=== PATIENT | male | born 1945 | race Caucasian/White ===

== ENCOUNTER 2018-01-19 18:40 | Inpatient (IN) | payer MEDICARE, BC ==
[2018-01-19 19:17] LABS: ADD MAN DIFF? NO
[2018-01-19] MEDS: ASPIRIN 325 MG TAB PO (19:25)
[2018-01-19] MEDS: morphine 4 MG/ML VIAL IV ×2 (19:25→20:35)
[2018-01-19] MEDS: ONDANSETRON 4 MG INJ IV ×2 (19:25→20:35)
[2018-01-19] MEDS: NITROGLYCERIN 2% 1 GM OINT PKT TD ×2 (19:26→20:36)
[2018-01-19] MEDS: SOD CHLORIDE 0.9% 500 ML IV (19:26)
[2018-01-19 19:29] LABS: WHITE BLOOD COUNT 12.8 10^3/ul (4.8-10.8)
[2018-01-19 19:29] LABS: BASOPHILS % 0.2 % (0.0-2.0); EOSINOPHILS # 0.2 10^3/ul (0.0-0.5); EOSINOPHILS % 1.3 % (0.0-7.0); HEMOGLOBIN 14.6 g/dl (14.0-18.0); LYMPHOCYTES # 2.6 10^3/ul (0.8-2.9); LYMPHOCYTES % 20.7 % (15.0-51.0); MEAN CORPUSCULAR HEMOGLOBIN 31.5 pg (29.0-33.0); MEAN CORPUSCULAR HGB CONC 32.4 g/dl (32.0-37.0); MEAN CORPUSCULAR VOLUME 97.2 fl (82.0-101.0); MONOCYTE # 1.1 10^3/ul (0.3-0.9); MONOCYTES % 8.4 % (0.0-11.0); NEUTROPHIL # 8.8 10^3/ul (1.6-7.5); PLATELET COUNT 201 10^3/UL (140-415); RED BLOOD COUNT 4.63 10^6/ul (4.70-6.10); RED CELL DISTRIBUTION WIDTH 14.6 % (11.5-14.5)
[2018-01-19] MEDS: ALBUTEROL 0.083% (NEB) 2.5 MG/3 ML AMP INH (19:33)
[2018-01-19 19:37] LABS: ALANINE AMINOTRANSFERASE 35 IU/L (13-69); ALBUMIN 3.4 g/dl (3.3-4.9); ALBUMIN/GLOBULIN RATIO 0.94; ALKALINE PHOSPHATASE 49 IU/L (42-121); ANION GAP 14 (8-16); ASPARTATE AMINO TRANSFERASE 46 IU/L (15-46); BILIRUBIN,INDIRECT 0.7 mg/dl (0-1.1); BILIRUBIN,TOTAL 0.7 mg/dl (0.2-1.3); BLOOD UREA NITROGEN 12 mg/dl (7-20); CALCIUM 8.8 mg/dl (8.4-10.2); CARBON DIOXIDE 29 mmol/L (21-31); CHLORIDE 104 mmol/L (97-110); CREATININE 0.95 mg/dl (0.61-1.24); GLUCOSE 127 mg/dl (70-220); SODIUM 143 mmol/L (135-144)
[2018-01-19 19:39] LABS: INR 1.02; PROTIME 13.5 Sec (11.9-14.9); PT RATIO 1.1
[2018-01-19 19:40] LABS: PARTIAL THROMBOPLASTIN TIME 30.1 Sec (25.0-35.0)
[2018-01-19 19:48] LABS: B-TYPE NATRIURETIC PEPTIDE 5930 PG/ML (0-125)
[2018-01-19] MEDS: IODIXANOL LOCM 100 ML BTL (20:37)
[2018-01-19] MEDS: SOD CHLORIDE 0.9% 100 ML (20:37)
[2018-01-19] MEDS: ENOXAPARIN 100 MG/ML SYG SC (20:47)
[2018-01-19] MEDS ORDERED: SOD CHLORIDE 0.9% 1,000 ML IV (21:09)
[2018-01-19] MEDS ORDERED: ACETAMINOPHEN 325 MG TAB PO (21:30)
[2018-01-19] MEDS ORDERED: ONDANSETRON 4 MG INJ IV ×2 (21:30→23:00)
[2018-01-19] MEDS: ATORVASTATIN 80 MG TAB PO (23:06)
[2018-01-20 01:01] LABS: CREATINE KINASE 169 IU/L (23-200)
[2018-01-20 01:12] LABS: CK INDEX 9.6
[2018-01-20] MEDS: DEXTROSE 5%-0.45% NACL 1,000 ML IV ×2 (05:28→21:16)
[2018-01-20] MEDS: CLOPIDOGREL 75 MG TAB PO ×2 (06:26→09:38)
[2018-01-20 06:31] LABS: ADD MAN DIFF? NO
[2018-01-20 06:35] LABS: WHITE BLOOD COUNT 11.4 10^3/ul (4.8-10.8)
[2018-01-20 06:35] LABS: BASOPHIL # 0.1 10^3/ul (0.0-0.1); BASOPHILS % 0.4 % (0.0-2.0); EOSINOPHILS # 0.2 10^3/ul (0.0-0.5); EOSINOPHILS % 1.5 % (0.0-7.0); HEMATOCRIT 44.1 % (42.0-52.0); HEMOGLOBIN 14.5 g/dl (14.0-18.0); LYMPHOCYTES # 2.3 10^3/ul (0.8-2.9); LYMPHOCYTES % 19.8 % (15.0-51.0); MEAN CORPUSCULAR HEMOGLOBIN 31.9 pg (29.0-33.0); MEAN CORPUSCULAR HGB CONC 32.9 g/dl (32.0-37.0); MEAN CORPUSCULAR VOLUME 97.1 fl (82.0-101.0); MEAN PLATELET VOLUME 10.1 fl (7.4-10.4); MONOCYTE # 0.8 10^3/ul (0.3-0.9); MONOCYTES % 7.4 % (0.0-11.0); NEUTROPHIL # 8.1 10^3/ul (1.6-7.5); NEUTROPHILS % 70.5 % (39.0-77.0); PLATELET COUNT 186 10^3/UL (140-415); RED BLOOD COUNT 4.54 10^6/ul (4.70-6.10); RED CELL DISTRIBUTION WIDTH 14.6 % (11.5-14.5)
[2018-01-20 07:01] LABS: CREATINE KINASE 161 IU/L (23-200)
[2018-01-20 07:13] LABS: CK INDEX 9.5
[2018-01-20 07:18] LABS: ALANINE AMINOTRANSFERASE 29 IU/L (13-69); ALBUMIN/GLOBULIN RATIO 0.88; ALKALINE PHOSPHATASE 47 IU/L (42-121); ANION GAP 10 (8-16); ASPARTATE AMINO TRANSFERASE 45 IU/L (15-46); BLOOD UREA NITROGEN 11 mg/dl (7-20); CALCIUM 8.5 mg/dl (8.4-10.2); CARBON DIOXIDE 29 mmol/L (21-31); CHLORIDE 106 mmol/L (97-110); CHOL/HDL RATIO 7.8 RATIO; CHOLESTEROL 188 mg/dl (100-200); CREATININE 0.86 mg/dl (0.61-1.24); GLUCOSE 112 mg/dl (70-220); HDL CHOLESTEROL 24 mg/dl (31-75); LDL CHOLESTEROL,CALCULATED 142 mg/dl; POTASSIUM 4.4 mmol/L (3.5-5.1); SODIUM 141 mmol/L (135-144); TOTAL PROTEIN 6.4 g/dl (6.1-8.1); TRIGLYCERIDES 111 mg/dl (0-149)
[2018-01-20] MEDS: ASPIRIN (EC) 81 MG TAB PO (08:16)
[2018-01-20] MEDS: LISINOPRIL 20 MG TAB PO (08:17)
[2018-01-20] MEDS: AMIODARONE 200 MG TAB PO (08:17)
[2018-01-20] MEDS: ISOSORBIDE DINITRATE 20 MG TAB PO ×3 (08:17→20:28)
[2018-01-20] MEDS: AMLODIPINE 5 MG TAB PO (09:38)
[2018-01-20] MEDS: ENOXAPARIN 100 MG/ML SYG SC ×2 (09:45→20:36)
[2018-01-20] MEDS: TAMSULOSIN (SR) 0.4 MG CAP PO (20:27)
[2018-01-20] MEDS: ATORVASTATIN 20 MG TAB PO (20:27)
[2018-01-20] MEDS: ACETAMINOPHEN 325 MG TAB PO (20:28)
[2018-01-21] MEDS: DEXTROSE 5%-0.45% NACL 1,000 ML IV ×4 (02:13→21:35)
[2018-01-21 08:09] LABS: ADD MAN DIFF? NO
[2018-01-21 08:25] LABS: WHITE BLOOD COUNT 8.2 10^3/ul (4.8-10.8)
[2018-01-21 08:25] LABS: BASOPHILS % 0.5 % (0.0-2.0); EOSINOPHILS # 0.1 10^3/ul (0.0-0.5); EOSINOPHILS % 1.7 % (0.0-7.0); HEMATOCRIT 40.7 % (42.0-52.0); HEMOGLOBIN 13.1 g/dl (14.0-18.0); LYMPHOCYTES # 1.8 10^3/ul (0.8-2.9); LYMPHOCYTES % 22.1 % (15.0-51.0); MEAN CORPUSCULAR HEMOGLOBIN 31.3 pg (29.0-33.0); MEAN CORPUSCULAR HGB CONC 32.2 g/dl (32.0-37.0); MEAN CORPUSCULAR VOLUME 97.4 fl (82.0-101.0); MEAN PLATELET VOLUME 10.2 fl (7.4-10.4); MONOCYTE # 0.8 10^3/ul (0.3-0.9); MONOCYTES % 9.2 % (0.0-11.0); NEUTROPHIL # 5.4 10^3/ul (1.6-7.5); NEUTROPHILS % 66.3 % (39.0-77.0); PLATELET COUNT 201 10^3/UL (140-415); RED BLOOD COUNT 4.18 10^6/ul (4.70-6.10); RED CELL DISTRIBUTION WIDTH 14.1 % (11.5-14.5)
[2018-01-21] MEDS: ASPIRIN (EC) 325 MG TAB PO (08:35)
[2018-01-21] MEDS: AMLODIPINE 5 MG TAB PO (08:35)
[2018-01-21] MEDS: LISINOPRIL 20 MG TAB PO (08:35)
[2018-01-21] MEDS: AMIODARONE 200 MG TAB PO (08:36)
[2018-01-21] MEDS: ISOSORBIDE DINITRATE 20 MG TAB PO ×3 (08:36→21:25)
[2018-01-21 08:37] LABS: ANION GAP 9 (8-16); BLOOD UREA NITROGEN 10 mg/dl (7-20); CALCIUM 8.6 mg/dl (8.4-10.2); CARBON DIOXIDE 31 mmol/L (21-31); CHLORIDE 105 mmol/L (97-110); GLUCOSE 152 mg/dl (70-220); POTASSIUM 3.9 mmol/L (3.5-5.1); SODIUM 141 mmol/L (135-144)
[2018-01-21] MEDS: ENOXAPARIN 100 MG/ML SYG SC ×3 (09:00→23:19)
[2018-01-21] MEDS: CLOPIDOGREL 75 MG TAB PO (09:00)
[2018-01-21] MEDS ORDERED: HEPARIN 1000 UNITS/ML 10 ML INJ (13:57)
[2018-01-21] MEDS ORDERED: SOD CHLORIDE 0.9% 500 ML (13:57)
[2018-01-21] MEDS ORDERED: IODIXANOL LOCM 100 ML BTL (13:57)
[2018-01-21] MEDS ORDERED: FENTAnyl 50 MCG/ML VIAL (13:57)
[2018-01-21] MEDS ORDERED: LIDOCAINE 1% (MDV) 20 ML INJ (13:57)
[2018-01-21] MEDS ORDERED: MIDAZOLAM 1 MG/ML 2 ML INJ (13:57)
[2018-01-21] MEDS ORDERED: CLOPIDOGREL 300 MG TAB (15:40)
[2018-01-21] MEDS ORDERED: ZOLPIDEM 5 MG TAB PO (16:00)
[2018-01-21] MEDS ORDERED: ONDANSETRON 4 MG INJ IV (16:00)
[2018-01-21] MEDS ORDERED: morphine 2 MG INJ IV (16:00)
[2018-01-21] MEDS ORDERED: ACETAMINOPHEN 325 MG TAB PO (16:00)
[2018-01-21] MEDS ORDERED: AL HYDROX/MG HYDROX/SIMETH 30 ML CUP PO (16:00)
[2018-01-21] MEDS: SOD CHLORIDE 0.9% 1,000 ML IV (16:40)
[2018-01-21] MEDS: ATORVASTATIN 20 MG TAB PO (21:25)
[2018-01-21] MEDS: TAMSULOSIN (SR) 0.4 MG CAP PO (21:25)
[2018-01-21] MEDS: OXYCODONE/ACETAMINOPHEN (5/325) TAB PO (21:29)
[2018-01-22 07:05] LABS: ADD MAN DIFF? NO
[2018-01-22 07:07] LABS: BASOPHILS % 0.4 % (0.0-2.0); EOSINOPHILS # 0.2 10^3/ul (0.0-0.5); EOSINOPHILS % 1.8 % (0.0-7.0); HEMATOCRIT 40.7 % (42.0-52.0); HEMOGLOBIN 13.5 g/dl (14.0-18.0); LYMPHOCYTES # 1.8 10^3/ul (0.8-2.9); LYMPHOCYTES % 20.7 % (15.0-51.0); MEAN CORPUSCULAR HEMOGLOBIN 31.3 pg (29.0-33.0); MEAN CORPUSCULAR HGB CONC 33.2 g/dl (32.0-37.0); MEAN CORPUSCULAR VOLUME 94.4 fl (82.0-101.0); MEAN PLATELET VOLUME 10.3 fl (7.4-10.4); MONOCYTE # 0.8 10^3/ul (0.3-0.9); NEUTROPHIL # 5.7 10^3/ul (1.6-7.5); NEUTROPHILS % 67.7 % (39.0-77.0); PLATELET COUNT 184 10^3/UL (140-415); RED BLOOD COUNT 4.31 10^6/ul (4.70-6.10); RED CELL DISTRIBUTION WIDTH 13.9 % (11.5-14.5)
[2018-01-22 07:07] LABS: WHITE BLOOD COUNT 8.5 10^3/ul (4.8-10.8)
[2018-01-22 07:52] LABS: CHOLESTEROL 161 mg/dl (100-200)
[2018-01-22 07:52] LABS: CHOL/HDL RATIO 8.4 RATIO; CREATINE KINASE 159 IU/L (23-200); HDL CHOLESTEROL 19 mg/dl (31-75); LDL CHOLESTEROL,CALCULATED 125 mg/dl; TRIGLYCERIDES 87 mg/dl (0-149)
[2018-01-22 08:26] LABS: ANION GAP 10 (8-16); BLOOD UREA NITROGEN 13 mg/dl (7-20); CALCIUM 8.3 mg/dl (8.4-10.2); CARBON DIOXIDE 24 mmol/L (21-31); CHLORIDE 108 mmol/L (97-110); CREATININE 0.77 mg/dl (0.61-1.24); GLUCOSE 104 mg/dl (70-220); MAGNESIUM 2.1 mg/dl (1.7-2.5); POTASSIUM 4.1 mmol/L (3.5-5.1); SODIUM 138 mmol/L (135-144)
[2018-01-22] MEDS: CLOPIDOGREL 75 MG TAB PO (08:50)
[2018-01-22] MEDS: ASPIRIN (EC) 325 MG TAB PO (08:50)
[2018-01-22] MEDS: AMLODIPINE 5 MG TAB PO (08:51)
[2018-01-22] MEDS: LISINOPRIL 20 MG TAB PO (08:52)
[2018-01-22] MEDS: ISOSORBIDE DINITRATE 20 MG TAB PO ×2 (08:52→13:06)
[2018-01-22] MEDS: AMIODARONE 200 MG TAB PO (08:53)
[2018-01-22] MEDS: ENOXAPARIN 100 MG/ML SYG SC (08:57)
[2018-01-22] MEDS: DEXTROSE 5%-0.45% NACL 1,000 ML IV (08:59)
[2018-01-22 19:23] LABS: CREATINE KINASE 144 IU/L (23-200)
[2018-01-22 19:35] LABS: CK-MB 8.65 ng/ml (0.0-2.4)
[2018-01-23] MEDS ORDERED: ENOXAPARIN 40 MG/0.4 ML SYG SC (09:00)
[2018-01-23] MEDS ORDERED: ASPIRIN (EC) 325 MG TAB PO (09:00)
== END 2018-01-22 19:49 | disposition home or self-care (01) | DRG 282 ==
LOC: E/R 18:40 → 6WM 01-21 07:39 → TEL 01-21 20:18
PROC: 4A023N7 Measurement of Cardiac Sampling and Pressure, Left Heart, Percutaneous Approach (ICD-10-PCS; principal; 2018-01-21 13:50)
PROC: B211YZZ Fluoroscopy of Multiple Coronary Arteries using Other Contrast (ICD-10-PCS; 2018-01-21 13:50)
DX: I21.4 Non-ST elevation (NSTEMI) myocardial infarction (principal); I25.10 Atherosclerotic heart disease of native coronary artery without angina pectoris; Z95.1 Presence of aortocoronary bypass graft; I10 Essential (primary) hypertension; E78.5 Hyperlipidemia, unspecified; J44.9 Chronic obstructive pulmonary disease, unspecified; Z87.891 Personal history of nicotine dependence; I48.91 Unspecified atrial fibrillation
CPT/HCPCS: 36415; 71275; 80048; 80053; 80061; 82550; 82553; 83735; 83880; 84443; 84484; 85025; 85610; 85730; 93005; 93306; 93308; 93458; 94664; 96372; 96374; 96375; 99291-25

== ENCOUNTER 2018-06-26 11:00 | Observation (INO) | payer MEDICARE, BC ==
[2018-06-26 11:21] LABS: ADD MAN DIFF? NO
[2018-06-26] MEDS: SOD CHLORIDE 0.9% 1,000 ML IV (11:22)
[2018-06-26 11:23] LABS: BASOPHIL # 0.1 10^3/ul (0.0-0.1); BASOPHILS % 0.6 % (0.0-2.0); EOSINOPHILS # 0.2 10^3/ul (0.0-0.5); EOSINOPHILS % 2.2 % (0.0-7.0); HEMATOCRIT 40.4 % (42.0-52.0); HEMOGLOBIN 13.4 g/dl (14.0-18.0); LYMPHOCYTES # 2.8 10^3/ul (0.8-2.9); LYMPHOCYTES % 28.3 % (15.0-51.0); MEAN CORPUSCULAR HEMOGLOBIN 30.9 pg (29.0-33.0); MEAN CORPUSCULAR HGB CONC 33.2 g/dl (32.0-37.0); MEAN CORPUSCULAR VOLUME 93.1 fl (82.0-101.0); MEAN PLATELET VOLUME 10.1 fl (7.4-10.4); MONOCYTE # 0.9 10^3/ul (0.3-0.9); MONOCYTES % 8.8 % (0.0-11.0); NEUTROPHILS % 59.8 % (39.0-77.0); PLATELET COUNT 195 10^3/UL (140-415); RED BLOOD COUNT 4.34 10^6/ul (4.70-6.10); RED CELL DISTRIBUTION WIDTH 12.7 % (11.5-14.5)
[2018-06-26 11:42] LABS: PROTIME 13.3 Sec (11.9-14.9)
[2018-06-26 11:43] LABS: PARTIAL THROMBOPLASTIN TIME 28.1 Sec (23.0-35.0)
[2018-06-26 11:45] LABS: ANION GAP 7 (5-13); BLOOD UREA NITROGEN 15 mg/dl (7-20); CALCIUM 8.8 mg/dl (8.4-10.2); CARBON DIOXIDE 25 mmol/L (21-31); CHLORIDE 108 mmol/L (97-110); CREATININE 0.96 mg/dl (0.61-1.24); GLUCOSE 133 mg/dl (70-220); POTASSIUM 4.5 mmol/L (3.5-5.1); SODIUM 140 mmol/L (135-144)
[2018-06-26 11:56] LABS: TROPONIN-I < 0.012 ng/ml (0.000-0.120)
[2018-06-26 12:40] LABS: MAGNESIUM 1.9 mg/dl (1.7-2.5)
[2018-06-26] MEDS ORDERED: ONDANSETRON 4 MG INJ IV (14:00)
[2018-06-26] MEDS ORDERED: ACETAMINOPHEN 325 MG TAB PO (14:00)
[2018-06-26] MEDS: SOD CHLORIDE 0.9% 500 ML IV (19:51)
[2018-06-26] MEDS: ATORVASTATIN 20 MG TAB PO (20:46)
[2018-06-26] MEDS: TAMSULOSIN (SR) 0.4 MG CAP PO (20:46)
[2018-06-26] MEDS: GABAPENTIN 300 MG CAP PO (20:47)
[2018-06-27] MEDS: CLOPIDOGREL 75 MG TAB PO (09:02)
[2018-06-27] MEDS: AMIODARONE 200 MG TAB PO (09:03)
[2018-06-27] MEDS: LISINOPRIL 20 MG TAB PO (09:03)
[2018-06-27] MEDS: GABAPENTIN 300 MG CAP PO ×3 (09:03→20:04)
[2018-06-27] MEDS: ISOSORBIDE MONONITRATE(SR)30 MG TAB PO (09:03)
[2018-06-27] MEDS: ASPIRIN (EC) 81 MG TAB PO (09:03)
[2018-06-27 15:36] LABS: TROPONIN-I < 0.012 ng/ml (0.000-0.120)
[2018-06-27] MEDS: ATORVASTATIN 20 MG TAB PO (20:05)
[2018-06-27] MEDS: TAMSULOSIN (SR) 0.4 MG CAP PO (20:05)
[2018-06-28] MEDS: GABAPENTIN 300 MG CAP PO ×2 (09:00→13:30)
[2018-06-28] MEDS: ASPIRIN (EC) 81 MG TAB PO (09:00)
[2018-06-28] MEDS: CLOPIDOGREL 75 MG TAB PO (09:53)
[2018-06-28] MEDS: AMIODARONE 200 MG TAB PO (09:53)
[2018-06-28] MEDS: ISOSORBIDE MONONITRATE(SR)30 MG TAB PO (09:54)
[2018-06-29] MEDS ORDERED: LISINOPRIL 10 MG TAB PO (09:00)
== END 2018-06-28 15:38 | disposition home or self-care (01) ==
LOC: E/R 11:00 → 6WM 13:36
DX: R55 Syncope and collapse (principal); I25.10 Atherosclerotic heart disease of native coronary artery without angina pectoris; Z95.1 Presence of aortocoronary bypass graft; I10 Essential (primary) hypertension; E78.5 Hyperlipidemia, unspecified; Z79.82 Long term (current) use of aspirin; N40.0 Benign prostatic hyperplasia without lower urinary tract symptoms; Z87.891 Personal history of nicotine dependence
CPT/HCPCS: 36415; 71045; 80048; 82962; 83735; 84484; 85025; 85610; 85730; 93005; 93880; 99285-25; G0378